=== PATIENT | male | born 1985 | race Caucasian/White ===

== ENCOUNTER → 2016-06-25 | Outpatient (CLI) | payer BC, OTHER ==
--- NOTE | 2016-06-25 19:47 | MR ---
EXAMINATION TYPE: MR lumbar spine wo con DATE OF EXAM: 06/25/2016 3:24 PM COMPARISON: NONE HISTORY: 31-year-old male with low back pain and right lower extremity radiculopathy. TECHNIQUE: Multiplanar, multisequence images of the lumbar spine were acquired. FINDINGS: Vertebral body heights are preserved and alignment is maintained. Fatty matrix hemangioma within L2 vertebral body. There is prominent red marrow and Modic type I edematous endplate change at L4-L5 and to a lesser ext ent at L3-L4 with associated degenerative disc disease. There is variable disc desiccation and moderate disc interspace narrowing from L3 through S1 levels, greatest at L4-L5 were vacuum phenomenon is also present. Disc bulging at these 3 levels with posterior annular fissures. There is a component of congenital spinal canal narrowing with AP canal dimension of 1.2 cm. Facet arthropathy lower lumbar spine. Conus medullaris is normal. At T12-L1, no spinal canal or foraminal stenosis. At L1-L2, tiny right paracentral protrusion without significant spinal canal or foraminal stenosis. At L2-L3, no spinal canal or neuroforaminal stenosis. At L3-L4, diffuse disc bulge with posterior annular fissure. This accentuates the mild spinal canal s tenosis and causes minimal bilateral inferior foraminal narrowing. At L4-L5, bulging disc with superimposed right paracentral disc protrusion with annular fissure. This is mass effect onto the traversing right L5 nerve root and along with mild facet arthropathy, causes mild bilateral neuroforaminal stenosis. There is slight accentuation of the mild congenital spinal c anal stenosis. At L5-S1, there is right paracentral broad-based disc protrusion with annular fissure. This material closely approaches and may abut the traversing right S1 nerve root. Along with mild facet degenerativ e change, there is mild bilateral neuroforaminal stenosis. No prevertebral or paravertebral soft tissue abnormality. IMPRESSION: 1. Mild congenital spinal canal stenosis accentuated by premature degenerative disc disease from L3 t hrough S1 levels. 2. Degenerative disc disease is moderate with bulging discs and annular fissures, moderate to severe at L4-L5. There is associated Modic type I edematous endplate change at both L3-L4 and L4-L5. 3. Right paracentral herniation at L4-L5 has mass effect on to the traversing right L5 nerve root. Mi ld bilateral neuroforaminal stenosis here. 4. Right paracentral broad-based herniation at L5-S1. Disc material closely approaches and may abut t he traversing right S1 nerve root. Mild bilateral neuroforaminal stenosis here. 5. Prominent red marrow. This could reflect patient's age but can also be seen in setting of anemia, obesity, smoking, and chronic disease.
== END | disposition home or self-care (01) ==
LOC: RADMRIMAIN 14:52
PROVIDERS: ATTEND Psychiatry & Neurology Neurology
DX: M48.06 Spinal stenosis, lumbar region (principal); M99.73 Connective tissue and disc stenosis of intervertebral foramina of lumbar region; M51.27 Other intervertebral disc displacement, lumbosacral region; M51.36 Other intervertebral disc degeneration, lumbar region
CPT/HCPCS: 72148

== ENCOUNTER 2023-02-22 11:01 | Emergency (ER) | payer OTHER, BC ==
[2023-02-22 11:24] VITALS: PULSE 80; TEMP 98.6
[2023-02-22] MEDS ORDERED: DIPH,PERTUS(ACELL)TETVAC-LF 0.5 ML VIAL IM ONE (11:47)
[2023-02-22] MEDS ORDERED: HYDROcodone/APAP 5-325MG 1 EACH TAB PO STA (11:48)
--- NOTE | 2023-02-22 11:55 | ED ---
Upper Extremity HPI - General Chief Complaint: Extremity Injury, Upper Stated Complaint: Lt hand injury Time Seen by Provider: 02/22/23 11:42 Source: patient, family Mode of arrival: ambulatory Limitations: no limitations - History of Present Illness Initial Comments: Patient is a 37-year-old male presenting to the ER with chief complaint of left thumb injury. Patient states he was working with metal when a piece dropped on his bottom cutting off the distal end. Patient states he wrapped his hand to control the bleeding. Bleeding is controlled at this time. Tetanus vaccination status is unknown. - Related Data Previous Rx's Medication Instructions Recorded Cephalexin [Keflex] 500 mg PO Q6HR 7 Days #28 cap 02/22/23 HYDROcodone/APAP 5-325MG [[place] 1 tab PO Q6HR PRN 3 Days #12 tab 02/22/23 5-325] Allergies Allergy/AdvReac Type Severity Reaction Status Date / Time No Known Allergies Allergy Verified 02/22/23 11:22 Review of Systems ROS Statement: Those systems with pertinent positive or pertinent negative responses have been documented in the HPI. ROS Other: All systems not noted in ROS Statement are negative. Past Medical History Past Medical History: No Reported History History of Any Multi-Drug Resistant Organisms: MRSA Past Surgical History: No Surgical Hx Reported Past Psychological History: No Psychological Hx Reported Smoking Status: Never smoker Past Alcohol Use History: None Reported Past Drug Use History: Marijuana General Exam Limitations: no limitations General appearance: alert, in no apparent distress Extremities exam: Present: other (Left thumb tuft is absent. MCP joint is intact. ) Course Vital Signs 02/22/23 11:19 Temperature 98.6 F Pulse Rate 80 Respiratory 16 Rate Blood Pressure 153/91 O2 Sat by Pulse 98 Oximetry Procedures - Nerve Block Consent Obtained: verbal consent Local Anesthetic Used: Lidocaine 1% Amount of anesthesia used: 10 Side: left Nerve Blocks: digital (left thumb) Procedure Successful: Yes Complications: none Patient Tolerated Procedure: well Medical Decision Making - Medical Decision Making Was pt. sent in by a medical professional or institution (JOE Nevarez, TOOL DESIGN ENGINEER, urgent care, hospital, or assisted...) When possible be specific @ -No Did you speak to anyone other than the patient for history (EMS, parent, family, police, friend...)? What history was obtained from this source @ -No Did you review nursing and triage notes (agree or disagree)? Why? @ -I reviewed and agree with nursing and triage notes Were old charts reviewed (outside hosp., previous admission, EMS record, old EKG, old radiological studies, urgent care reports/EKG's, assisted records)? Report findings @ -No old charts were reviewed Differential Diagnosis (chest pain, altered mental status, abdominal pain women, abdominal pain men, vaginal bleeding, weakness, fever, dyspnea, syncope, headache, dizziness, GI bleed, back pain, seizure, CVA, palpatations, mental health, musculoskeletal)? @ -finger laceration, finger amputation, fracture, osteomyelitis EKG interpreted by me (3pts min.). @ -None X-rays interpreted by me (1pt min.). @ -Left thumb x-ray significant for left thumb soft tissue and partial amputation of distal osseous phalanx CT interpreted by me (1pt min.). @ -None done U/S interpreted by me (1pt. min.). @ -None done What testing was considered but not performed or refused? (CT, X-rays, U/S, labs)? Why? @ -None What meds were considered but not given or refused? Why? @ -None Did you discuss the management of the patient with other professionals (kinsey oro i.e. , PA, TOOL DESIGN ENGINEER, lab, RT, psych nurse, rn social services, medical clerk, teacher, airline pilot/first officer, patient case coordinator)? Give summary @ -Yes, [place] with orthopedics consulted. He advised intensive irrigation, and covered with Vaseline and gauze. Advised to see orthopedics in the next 1-2 days for further evaluation. He is advised to start patient on Keflex 500 mg every 6 for one week. Was smoking cessation discussed for >3mins.? @ -No Was critical care preformed (if so, how long)? @ -No Were there social determinants of health that impacted care today? How? (Homelessness, low income, unemployed, alcoholism, drug addiction, transportation, low edu. Level, literacy, decrease access to med. care, care home, rehab)? @ -No Was there de-escalation of care discussed even if they declined (Discuss DNR or withdrawal of care, Hospice)? DNR status @ -No What co-morbidities impacted this encounter? (DM, HTN, Smoking, COPD, CAD, Cancer, CVA, ARF, Chemo, Hep., AIDS, mental health diagnosis, sleep apnea, morbid obesity)? @ -None Was patient admitted / discharged? Hospital course, mention meds given and route, prescriptions, significant lab abnormalities, going to OR and other pertinent info. @ -Discharge. Patient is 37-year-old male presenting to the ER with chief complaint of a left thumb injury. On exam distal end of left thumb was amputated. MCP joint intact and full ROM. Orthopedics was consulted. X-ray showed amputation of soft tissues and partial amputation of distal osseous phalanx. Patient was given a tetanus vaccination. Patient was treated with [place] by mouth and a left thumb digital block using 1% lidocaine for pain control. Ancef IM for open bone fracture. Left thumb was intensively irrigated and wrapped with bacitracin and Vaseline bandage then covered with gauze and Coban. Patient will be discharged to follow-up with orthopedics within 1- 2 days. Patient also prescribed Keflex 500 mg and given written [place] script for pain control. Undiagnosed new problem with uncertain prognosis? @ -No Drug Therapy requiring intensive monitoring for toxicity (Heparin, Nitro, Insulin, Cardizem)? @ -No Were any procedures done? @ -[Yes Diagnosis/symptom? @ -Left thumb tuft amputation Acute, or Chronic, or Acute on Chronic? @ -[Acute Uncomplicated (without systemic symptoms) or Complicated (systemic symptoms)? @ -Uncomplicated Side effects of treatment? @ -No Exacerbation, Progression, or Severe Exacerbation? @ -No Poses a threat to life or bodily function? How? (Chest pain, [place], [place], pneumonia, PE, COPD, DKA, ARF, appy, cholecystitis, CVA, Diverticulitis, Homicidal, Suicidal, threat to staff... and all critical care pts) @ -No Disposition Clinical Impression: Open finger fracture Disposition: HOME SELF-CARE Condition: Stable Prescriptions: Cephalexin [Keflex] 500 mg PO Q6HR 7 Days #28 cap Is patient prescribed a controlled substance at d/c from ED?: Yes When asked, does pt state using other controlled substances?: No If prescribed controlled substance>3 days was MAPS reviewed?: Prescribed <3 Days If opioid is for acute pain is fill amount 7 days or less?: Yes If Rx opioid, was Start Talking consent form obtained?: Yes Referrals: Miguel Salazar, [Doctor of Osteopathic Medicine] - As Soon As Possible (Obtain an authorization from [employer] then call office to make appointment. ) None,Stated [Primary Care Provider] - 1-2 days Time of Disposition: 15:07
[2023-02-22] MEDS ORDERED: ceFAZolin 1,000 MG VIAL (IM USE) IM STA (12:32)
--- NOTE | 2023-02-22 12:43 | XR ---
EXAMINATION TYPE: XR finger LT DATE OF EXAM: 02/22/2023 CLINICAL HISTORY: pain TECHNIQUE: 3 views of the left first digit are submitted. COMPARISON: None FINDINGS: There is amputation of the distal soft tissues of the left thumb with partial amputation of the distal osseous phalanx. Radiopaque densities are seen within the soft tissues may reflect radiop aque foreign body. Joint spaces are well preserved. IMPRESSION: As above
[2023-02-22] MEDS ORDERED: BACITRACIN OINT 1 EACH PACKET TOPICAL ONE (13:13)
[2023-02-22] MEDS ORDERED: HYDROmorphone 1 MG/ML 1 ML SYRINGE IM STA (13:36)
[2023-02-22] MEDS ORDERED: LIDOCAINE 1% INJ 10MG/ML (20 ML MDV) SQ ONE (13:52)
[2023-02-22 15:14] VITALS: BP 136/75; RESP 18
== END 2023-02-22 15:09 | disposition home or self-care (01) ==
LOC: EC 11:01
DX: S62.639A Displaced fracture of distal phalanx of unspecified finger, initial encounter for closed fracture (principal); F12.90 Cannabis use, unspecified, uncomplicated; Z23 Encounter for immunization; W45.8XXA Other foreign body or object entering through skin, initial encounter; Y99.0 Civilian activity done for income or pay
CPT/HCPCS: 73140; 90715; 99283; 90471; 96372; 64400; J0690; J2001